=== PATIENT | male | born 1980 | race Caucasian/White ===

== ENCOUNTER 2018-01-13 19:09 | Emergency (ER) | payer SELFPAY ==
[~2018-01-13] VITALS: Ht 170.2 cm; Wt 81.8 kg
[~2018-01-13 19:09] MED LIST: BACTRIM DS1 TAB PO; CIPROFLOXACN500 MG PO; CORTISPORIN OTI10 ML AD; LORTAB 5/3255 MG PO; NAPROSYN500 MG PO; PERCOCET 5/325M1 TAB PO; TRILEPTAL150 M1 PO
[2018-01-13] MEDS ORDERED: BACTRIM DS1 TAB PO (20:05)
[2018-01-13] MEDS ORDERED: ULTRAM50 M1 PO (20:05)
[2018-01-13] MEDS ORDERED: CLINDAMYCIN300 M1 PO (20:05)
[2018-01-13 20:29] VITALS: BP 137/80
== END 2018-01-13 20:42 | disposition home or self-care (01) | DRG 603 ==
LOC: ED 19:09
DX: L03.116 Cellulitis of left lower limb (principal); F17.210 Nicotine dependence, cigarettes, uncomplicated; Z22.322 Carrier or suspected carrier of Methicillin resistant Staphylococcus aureus

== ENCOUNTER 2019-08-11 14:14 | Emergency (ER) | payer SELFPAY ==
[~2019-08-11] VITALS: Ht 170.2 cm; Wt 85.0 kg
[~2019-08-11 14:14] MED LIST changes: +CLINDAMYCIN300 M1 PO; +ULTRAM50 M1 PO
[2019-08-11 14:53] LABS: URINE BILIRUBIN - DIPSTICK NEGATIVE (NEGATIVE); URINE BLOOD DIPSTICK MODERATE (NEGATIVE); URINE COLOR YELLOW; URINE GLUCOSE - DIPSTICK NEGATIVE (NEGATIVE); URINE KETONE NEGATIVE (NEGATIVE); URINE LEUK ESTERASE TRACE (NEGATIVE); URINE NITRITE - DIPSTICK NEGATIVE (Negative); URINE PH 5.5 (4.5-8.0); URINE PROTEIN - DIPSTICK 30 mg/dL (NEG-TRACE); URINE SPECIFIC GRAVITY >=1.030; URINE UROBILINOGEN - DIPSTICK 0.2 E.U./dL (0.2)
[2019-08-11 15:05] LABS: URINE RBC TNTC RBC/hpf (0-5); URINE SQUAMOUS EPITHELIAL CELL FEW EPI/hpf (0-FEW)
[2019-08-11] MEDS ORDERED: DOXYCYCLINE100 MG PO (15:35)
[2019-08-11] MEDS ORDERED: ZOFRAN4 MG/TAB PO (15:36)
[2019-08-11 15:50] VITALS: BP 119/76
== END 2019-08-11 15:58 | disposition home or self-care (01) | DRG 696 ==
LOC: ED 14:14
DX: R30.0 Dysuria (principal); N48.89 Other specified disorders of penis; R36.9 Urethral discharge, unspecified; F17.210 Nicotine dependence, cigarettes, uncomplicated; Z20.2 Contact with and (suspected) exposure to infections with a predominantly sexual mode of transmission; Z88.0 Allergy status to penicillin

== ENCOUNTER 2020-04-20 17:35 | Inpatient (IN) | payer SELFPAY ==
[~2020-04-20] VITALS: Ht 170.2 cm; Wt 109.0 kg
[~2020-04-20 17:35] MED LIST changes: +DOXYCYCLINE100 MG PO; +ZOFRAN4 MG/TAB PO
--- NOTE | 2020-04-20 18:15 | NUR ---
Pt to room # 3 with steady gait for bedside triage
--- NOTE | 2020-04-20 18:18 | NUR ---
Pt placed gown over his clothing. States he'd rather keep his clothes on. Pt requesting to take a shower once he gets upstairs. Advised he would need to let his nurse know upstairs since there are no showers in the ER for patient use. Call el within reach. Denies any needs at this time
--- NOTE | 2020-04-20 18:20 | NUR ---
Dr Massey at bedside with portable US machine. Pt with right groin abscess with reddened area surrounding abscess. Dr Massey advised pt he would need to be admitted.
--- NOTE | 2020-04-20 18:57 | NUR ---
IV abx infusing to LAC at prescribed rate. IV site WNL, no redness or swelling noted. Call el within reach. Denies any needs at this time. Will continue to monitor.
[2020-04-20 19:02] LABS: HEMATOCRIT 46.4 % (39.0-50.0); HEMOGLOBIN 15.3 g/dl (14.0-18.0); IMMATURE GRANULOCYTES 0.4 % (0.0-5.0); MEAN CELL VOLUME 84.5 fL CALC (80.0-100.0); MEAN CORPUSCULAR HGB 27.9 pG CALC (26.0-32.0); NEUT# 12.11 thou/uL (1.82-7.42); RED BLOOD COUNT 5.49 mill/uL (4.70-6.10)
--- NOTE | 2020-04-20 19:10 | NUR ---
SBAR PRINTED TO FLOOR
[2020-04-20 19:27] LABS: ALKALINE PHOSPHATASE 54 u/l (38-126); ANION GAP 12 (6-22 (CALC)); BILIRUBIN, TOTAL 0.4 mg/dL (0.0-1.4); BUN 15 mg/dL (9-20); BUN/CREATININE RATIO 14 (12-20 (CALC)); CARBON DIOXIDE 27 mmol/l (22-30); CHLORIDE 102 mmol/l (95-108); CREATININE 1.1 mg/dL (0.7-1.3); GFR > 60 ML/MIN (>=60 (CALC)); GFR FOR AFR.AMER. > 60 ML/MIN (>=60 (CALC)); POTASSIUM 3.8 mmol/l (3.5-5.1); SGOT/AST 63 u/l (17-59); SODIUM 137 mmol/l (137-146); TOTAL PROTEIN 6.8 g/dL (6.3-8.2)
--- NOTE | 2020-04-20 19:38 | NUR ---
Sepsis worksheet initiated at this time
--- NOTE | 2020-04-20 20:00 | NUR ---
IV abx infusing at prescribed rate. IV site WNL. No redness or swelling noted. Call el within reach. Denies any needs at this time. Will continue to monitor.
--- NOTE | 2020-04-20 20:15 | NUR ---
Admission Note Report Given to: MERLENE Nieves Transported by: X Wheelchair Stretcher Transported with: X Nurse Transporter X Patent IV O2 Poultry Scalder Location: ICU X [facility] All belongings sent with pt to floor
--- NOTE | 2020-04-20 20:30 | NUR ---
RECIVED REPORT FROM NURSE GILLILAND PATIENT TRANSPORTED VIA WHEELCHAIR, ORIENTED TO ROOM AND CALL LIGHT SYSTEM.
--- NOTE | 2020-04-20 20:30 | NUR ---
Pt transported to room # 273 via W/C in stable condition. Allergy band on left arm and IV site labeled. Sepsis worksheet initiaed in ER and given to Ezequiel with bedside report. Care relinquished at this time
[2020-04-20 20:35] VITALS: BP 136/71
--- NOTE | 2020-04-20 20:51 | NUR ---
CALLED DR. CAMACHO REGARDING CLARIFICATION FOR CIPROFLOXACIN WITH ORDERS MADE, FAX TO PHARMACY.
--- NOTE | 2020-04-20 21:30 | NUR ---
RECEIVED A PHONE CALL FROM LAB PATIENTS LACTIC ACID 2.0
--- NOTE | 2020-04-20 21:30 | NUR ---
PATIENT SHOWERED AT THIS TIME.
[2020-04-20 22:00] VITALS: BP 143/83
[2020-04-20 23:30] VITALS: BP 138/64
--- NOTE | 2020-04-21 | NUR ---
PATIENT COMFORTABLY RESTING IN BED, EYES CLOSED,BREATHING EVEN AND UNLABORED CALL LIGHT AT REACH.
[2020-04-21 03:54] VITALS: BP 113/66
--- NOTE | 2020-04-21 04:30 | NUR ---
PATIENT RESTING IN BED WITH EYES CLOSED NO DISCOMFORTS NOTED AT THIS TIME.
[2020-04-21 07:15] VITALS: BP 109/61
--- NOTE | 2020-04-21 14:20 | NUR ---
S: SOFÍA LATIF is a 39 M who presents with cellulitis. He has no past medical history. All medications in patient's chart were reviewed. O: VS: BP 109/61 mmHg, P 82 bpm, RR 20, T 97.9 F W 109 kg, HT170 cm, Scr= 1.1 mg/dl, CrCl= 107.8 ml/min A: Blood culture on 04/20/20 is pending. P: Patient is on ciprofloxacin 400 mg IV Q12H and clindamycin 900 mg IV Q8H . Vancomycin ordered for pharmacy to dose. Start Vancomycin 1g IV Q8H. Vancomycin trough is drawn before the 4th dose on 04/22/20 at 0830. Vancomycin goal trough is between <10-15 mcg/ml>. Pharmacy will follow and or advise on antibiotics use as needed.
--- NOTE | 2020-04-21 14:58 | NUR ---
PT IN BED WITH EYES CLOSED. STATING HE IS VERY SLEEPY AND HAS NOT GOTTEN GOOD REST AT HOME. RESIDENT IS EASILY AROUSED. MEAL AND FLUID INTAKE ADEQUATE. CONTINENT OF B/B AND GETS UP TO TOILET WITH NO ASSIST. COMPLAINS OF PAIN TO GROIN WHEN YOU TOUCH THE AREA. REDNESS AND WARTH NOTED TO RIGHT GROIN AREA. MEDICATIONS GIVEN AND TOLERATED WELL. CALL LIGHT IS WITHIN REACH AND BED IN GOOD POSITION. WILL CONTINUE TO OBSERVE.
[2020-04-21 15:00] VITALS: BP 116/80
[2020-04-21 18:00] VITALS: BP 121/76
--- NOTE | 2020-04-21 19:08 | NUR ---
RECEIVED REPORT FROM DAY NURSE PATIENT CURRENTLY SITTING IN CHAIR BREATHING EVEN AND UNLABORED, CALL LIGHT AT REACH.
[2020-04-21 19:30] VITALS: BP 139/84
--- NOTE | 2020-04-21 19:40 | NUR ---
VITAL SIGNS STABLE, NOT IN DISTRESS
--- NOTE | 2020-04-21 19:45 | NUR ---
RECEIVED REPORT FROM NURSE AGUIRRE THE PATIENT WAS TRYING TO LEAVE AMA, PATIENT WAS ADMIITED FOR RT GROIN CELLULITIS AND THAT PATIENT SQUEEZE THE ABSCESS HIMSELF. DAY NURSE CLEANED AND APPLID DRESSING ON THE AREA.
--- NOTE | 2020-04-21 19:48 | NUR ---
TALKED TO PATIENT ABOUT DECISION, THAT HE IS CURRENTLY ON ANTIBIOTIC THERAPY FOR THE ABSCESS AND SQUEEZING IN FEBRUARY CAUSED INFECTION, PATIENT STILL WANTS TO SIGN AGAINST MEDICAL ADVICE FORM AND WANTED TO GO HOME THAT HE IS OK NOW. NURSE PAINT ROLLER WINDER MADE AWARE AND DR. CAMACHO WAS NOTIFIED AT THIS TIME.
--- NOTE | 2020-04-21 19:50 | NUR ---
DRESSING ONTHE RT GROIN CDI, PATIENT IS IN NO APPARENT DISTRESS, PATIENT SIGNED AMA FORM SIGN WILLINGLY, IV REMOVED SITE APPEARS HEALTHY, PATIENT WALK OUT AND LEFT HOSPITAL.
== END 2020-04-21 19:50 | disposition left against medical advice (07) | DRG 603 ==
LOC: ED 17:35 → ED-I 18:29 → ED 18:29 → ED-I 18:56 → MS2 18:56 → ED-I 18:56 → MS2 19:53
PROVIDERS: Family Medicine; ADMIT Surgery; ATTEND Surgery
DX: L02.214 Cutaneous abscess of groin (principal); L03.314 Cellulitis of groin; F17.200 Nicotine dependence, unspecified, uncomplicated; Z86.14 Personal history of Methicillin resistant Staphylococcus aureus infection; Z88.0 Allergy status to penicillin; Z20.828 Contact with and (suspected) exposure to other viral communicable diseases

== ENCOUNTER 2020-08-17 18:46 | Emergency (ER) | payer SELFPAY ==
[~2020-08-17] VITALS: Ht 170.2 cm; Wt 100.0 kg
[2020-08-17 20:52] LABS: HEMATOCRIT 45.9 % (39.0-50.0); HEMOGLOBIN 14.8 g/dl (14.0-18.0); IMMATURE GRANULOCYTES 0.5 % (0.0-5.0); MEAN CELL VOLUME 87.4 fL CALC (80.0-100.0); MEAN CORPUSCULAR HGB 28.2 pG CALC (26.0-32.0); MEAN CORPUSCULAR HGB CONC 32.2 g/dL CAL (32.0-36.0); NEUT# 9.83 thou/uL (1.82-7.42); RED BLOOD COUNT 5.25 mill/uL (4.70-6.10); RED CELL DISTRI WIDTH 13.2 % (11.5-15.5)
[2020-08-17 21:10] LABS: ALBUMIN 4.5 g/dL (3.2-5.0); ALKALINE PHOSPHATASE 56 u/l (38-126); ANION GAP 12 (6-22 (CALC)); BUN 24 mg/dL (9-20); BUN/CREATININE RATIO 20 (12-20 (CALC)); CARBON DIOXIDE 25 mmol/l (22-30); CHLORIDE 109 mmol/l (95-108); CREATININE 1.2 mg/dL (0.7-1.3); GFR > 60 ML/MIN (>=60 (CALC)); GFR FOR AFR.AMER. > 60 ML/MIN (>=60 (CALC)); POTASSIUM 4.1 mmol/l (3.5-5.1); SGOT/AST 39 u/l (17-59); SODIUM 142 mmol/l (137-146); TOTAL PROTEIN 7.8 g/dL (6.3-8.2)
[2020-08-17 21:11] LABS: BILIRUBIN, TOTAL 0.8 mg/dL (0.0-1.4)
[2020-08-17] MEDS ORDERED: BACTRIM DS1 TAB PO (22:16)
[2020-08-17 22:18] VITALS: BP 136/74
== END 2020-08-17 22:18 | disposition left against medical advice (07) | DRG 605 ==
LOC: ED 18:46
PROVIDERS: Family Medicine
PROC: 0HQ2XZZ Repair Right Ear Skin, External Approach (ICD-10-PCS; principal; 2020-08-17)
PROC: 0HQ0XZZ Repair Scalp Skin, External Approach (ICD-10-PCS; 2020-08-17)
DX: S01.01XA Laceration without foreign body of scalp, initial encounter (principal); S01.311A Laceration without foreign body of right ear, initial encounter; S02.2XXA Fracture of nasal bones, initial encounter for closed fracture; S00.11XA Contusion of right eyelid and periocular area, initial encounter; H11.31 Conjunctival hemorrhage, right eye; F17.200 Nicotine dependence, unspecified, uncomplicated; Y04.2XXA Assault by strike against or bumped into by another person, initial encounter; Y92.830 Public park as the place of occurrence of the external cause; Z91.19 Patient's noncompliance with other medical treatment and regimen

== ENCOUNTER 2023-01-09 03:34 | Emergency (ER) | payer SELFPAY ==
[~2023-01-09] VITALS: Ht 170.2 cm; Wt 81.0 kg
[2023-01-09] MEDS ORDERED: LORTAB 1010 MG PO (05:10)
[2023-01-09] MEDS ORDERED: DOXYCYCLINE100 MG PO (05:10)
[2023-01-09] MEDS ORDERED: BACTRIM DS1 TAB PO (05:10)
[2023-01-09 05:38] VITALS: BP 140/85
== END 2023-01-09 05:40 | disposition home or self-care (01) | DRG 581 ==
LOC: ED 03:34
PROC: 0W9F0ZZ Drainage of Abdominal Wall, Open Approach (ICD-10-PCS; principal; 2023-01-09)
DX: L02.211 Cutaneous abscess of abdominal wall (principal); T63.301A Toxic effect of unspecified spider venom, accidental (unintentional), initial encounter; Y92.9 Unspecified place or not applicable

== ENCOUNTER 2023-01-11 17:55 | Emergency (ER) | payer OTHER ==
[2023-01-11] VITALS (13 sets, daily range): BP systolic 73–155; BP diastolic 45–95
[~2023-01-11] VITALS: Ht 170.2 cm; Wt 177.0 kg
[~2023-01-11 17:55] MED LIST changes: +LORTAB 1010 MG PO
[2023-01-11 18:18] LABS: BASO% 0.3 % (0-3); EOS% 1.7 % (0-8); HEMATOCRIT 50.2 % (39.0-50.0); HEMOGLOBIN 16.1 g/dl (14.0-18.0); IMMATURE GRANULOCYTES 0.4 % (0.0-5.0); LYMPH% 13.6 % (15-41); MEAN CORPUSCULAR HGB 27.9 pG CALC (26.0-32.0); MEAN CORPUSCULAR HGB CONC 32.1 g/dL CAL (32.0-36.0); MONO% 6.1 % (2-13); NEUT# 9.25 thou/uL (1.82-7.42); NEUT% 77.9 % (42-76); RED BLOOD COUNT 5.77 mill/uL (4.70-6.10); RED CELL DISTRI WIDTH 12.8 % (11.5-15.5)
[2023-01-11 18:34] LABS: ALBUMIN 4.9 g/dL (3.2-5.0); ANION GAP 17 (6-22 (CALC)); BUN 16 mg/dL (9-20); BUN/CREATININE RATIO 13 (12-20 (CALC)); CARBON DIOXIDE 24 mmol/l (22-30); CHLORIDE 108 mmol/l (95-108); CREATININE 1.3 mg/dL (0.7-1.3); GFR FOR AFR.AMER. > 60 ML/MIN (>=60 (CALC)); GFR OTHER RACES > 60 ML/MIN (>=60 (CALC)); LIPASE 68 u/l (23-300); POTASSIUM 4.5 mmol/l (3.5-5.1); SGOT/AST 29 u/l (17-59); SODIUM 145 mmol/l (137-146)
[2023-01-11 18:35] LABS: ETHYL ALCOHOL 0 mg/dl (0-30)
[2023-01-11 18:48] LABS: ALKALINE PHOSPHATASE 96 u/l (38-126); BILIRUBIN, TOTAL 0.2 mg/dL (0.2-1.3)
[2023-01-11 23:33] LABS: URINE BILIRUBIN - DIPSTICK NEGATIVE (NEGATIVE); URINE BLOOD DIPSTICK NEGATIVE (NEGATIVE); URINE CLARITY CLEAR; URINE COLOR YELLOW; URINE GLUCOSE - DIPSTICK NEGATIVE (NEGATIVE); URINE KETONE TRACE mg/dL (NEGATIVE); URINE LEUK ESTERASE NEGATIVE (Negative); URINE NITRITE - DIPSTICK NEGATIVE (Negative); URINE PH 5.5 (4.5-8.0); URINE PROTEIN - DIPSTICK NEGATIVE (NEG-TRACE); URINE SPECIFIC GRAVITY >=1.030; URINE UROBILINOGEN - DIPSTICK 0.2 E.U./dL (0.2)
[2023-01-12 00:02] VITALS: BP 106/53
[2023-01-12 00:16] VITALS: BP 126/54
[2023-01-12 00:24] VITALS: BP 126/54
== END 2023-01-12 00:41 | DRG 918 ==
LOC: ED 17:55
PROVIDERS: Emergency Medicine
DX: T40.5X1A Poisoning by cocaine, accidental (unintentional), initial encounter (principal); F15.10 Other stimulant abuse, uncomplicated; F16.10 Hallucinogen abuse, uncomplicated; F17.210 Nicotine dependence, cigarettes, uncomplicated
CPT/HCPCS: J2060

== ENCOUNTER 2024-11-22 16:01 | Emergency (ER) | payer SELFPAY ==
[~2024-11-22] VITALS: Ht 170.2 cm; Wt 79.4 kg
[2024-11-22] VITALS (9 sets, daily range): BP systolic 101–143; BP diastolic 61–94
[2024-11-22] MEDS ORDERED: BACTRIM DS1 TAB PO (17:46)
== END 2024-11-22 18:05 | disposition home or self-care (01) | DRG 594 ==
LOC: ED 16:01
DX: L97.529 Non-pressure chronic ulcer of other part of left foot with unspecified severity (principal); F17.200 Nicotine dependence, unspecified, uncomplicated; Z87.820 Personal history of traumatic brain injury

== ENCOUNTER 2024-11-24 17:30 | Emergency (ER) | payer SELFPAY ==
[~2024-11-24] VITALS: Ht 170.2 cm; Wt 63.0 kg
[2024-11-24 17:51] VITALS: BP 107/73
[2024-11-24] MEDS ORDERED: SODIUM CHLORIDE 0.9% 1,000 ML IV ONE ×2 (17:55→18:40)
[2024-11-24] MEDS ORDERED: KETOROLAC TROMETHAMINE 15 MG/ML SDV IV ONE (17:55)
[2024-11-24 18:27] LABS: BASO% 0.3 % (0-3); HEMATOCRIT 46.5 % (39.0-50.0); HEMOGLOBIN 14.1 g/dl (14.0-18.0); IMMATURE GRANULOCYTES 0.3 % (0.0-5.0); LYMPH% 7.1 % (15-41); MEAN CELL VOLUME 97.3 fL CALC (80.0-100.0); MEAN CORPUSCULAR HGB 29.5 pG CALC (26.0-32.0); MEAN CORPUSCULAR HGB CONC 30.3 g/dL CAL (32.0-36.0); MONO% 3.7 % (2-13); NEUT# 8.83 thou/uL (1.82-7.42); NEUT% 88.6 % (42-76); RED BLOOD COUNT 4.78 mill/uL (4.70-6.10); RED CELL DISTRI WIDTH 14.5 % (11.5-15.5)
[2024-11-24 18:36] VITALS: BP 110/75
[2024-11-24 18:37] LABS: ALBUMIN 4.1 g/dL (3.2-5.0); CREATININE 1.5 mg/dL (0.7-1.3); POTASSIUM 3.7 mmol/l (3.5-5.1); TOTAL PROTEIN 7.6 g/dL (6.3-8.2)
[2024-11-24 18:38] LABS: BILIRUBIN, TOTAL 1.1 mg/dL (0.2-1.3)
[2024-11-24 18:46] VITALS: BP 115/70
[2024-11-24 18:59] LABS: ETHYL ALCOHOL 0 mg/dl (0-30)
[2024-11-24 19:00] VITALS: BP 107/65
[2024-11-24 19:15] VITALS: BP 105/65
[2024-11-24 20:21] LABS: URINE BLOOD DIPSTICK Trace-intact (NEGATIVE); URINE GLUCOSE - DIPSTICK 100 mg/dL (NEGATIVE); URINE KETONE 40 mg/dL (NEGATIVE); URINE LEUK ESTERASE Negative (NEGATIVE); URINE NITRITE - DIPSTICK Negative (Negative); URINE PROTEIN - DIPSTICK 30 mg/dL (NEG-TRACE)
[2024-11-24 20:24] LABS: URINE COLOR Dark yellow
[2024-11-24 20:31] LABS: URINE RBC 0-2 RBC/hpf (0-5); URINE WBC 0-2 WBC/hpf (0-5)
[2024-11-24 20:32] LABS: URINE MUCUS FEW hpf (NONE-FEW)
[2024-11-24] MEDS ORDERED: ACETAMINOPHEN 500 MG TAB PO ONE (21:15)
[2024-11-24] MEDS ORDERED: IBUPROFEN 600 MG/TAB PO ONE (21:15)
[2024-11-24 21:30] VITALS: BP 105/65
[2024-11-25] MEDS ORDERED: PROTONIX40 M2 PO ×2 (11:43→12:42)
== END 2024-11-24 21:30 | disposition short-term general hospital (02) | DRG 83 ==
LOC: ED 17:30
PROVIDERS: Nurse Practitioner Family
DX: S06.35AA Traumatic hemorrhage of left cerebrum with loss of consciousness status unknown, initial encounter (principal); N17.9 Acute kidney failure, unspecified; E86.0 Dehydration; F17.200 Nicotine dependence, unspecified, uncomplicated; W17.89XA Other fall from one level to another, initial encounter; Z59.00 Homelessness unspecified; Z87.820 Personal history of traumatic brain injury
CPT/HCPCS: J1885; Q9967

== ENCOUNTER 2024-11-25 08:57 | Emergency (ER) | payer SELFPAY ==
[~2024-11-25] VITALS: Ht 170.2 cm; Wt 79.0 kg
[2024-11-25] VITALS (8 sets, daily range): BP systolic 103–121; BP diastolic 57–72
[2024-11-25 09:56] LABS: BASO% 0.5 % (0-3); HEMOGLOBIN 12.3 g/dl (14.0-18.0); IMMATURE GRANULOCYTES 0.5 % (0.0-5.0); LYMPH% 3.1 % (15-41); MEAN CELL VOLUME 91.6 fL CALC (80.0-100.0); MEAN CORPUSCULAR HGB 29.5 pG CALC (26.0-32.0); MEAN CORPUSCULAR HGB CONC 32.2 g/dL CAL (32.0-36.0); MONO% 3.6 % (2-13); NEUT# 5.66 thou/uL (1.82-7.42); NEUT% 92.3 % (42-76); RED BLOOD COUNT 4.17 mill/uL (4.70-6.10); RED CELL DISTRI WIDTH 14.3 % (11.5-15.5)
[2024-11-25 09:57] LABS: HEMATOCRIT 38.2 % (39.0-50.0)
[2024-11-25 10:07] LABS: POTASSIUM 3.9 mmol/l (3.5-5.1); TOTAL PROTEIN 6.3 g/dL (6.3-8.2)
[2024-11-25 10:09] LABS: ALBUMIN 3.1 g/dL (3.2-5.0); BILIRUBIN, TOTAL 0.6 mg/dL (0.2-1.3)
[2024-11-25] MEDS ORDERED: KETOROLAC TROMETHAMINE 15 MG/ML SDV IV ONE (10:55)
[2024-11-25] MEDS ORDERED: ONDANSETRON HCl 4 MG/2 ML SDV IV ONE (10:55)
[2024-11-25] MEDS ORDERED: Pantoprazole Sodium 40 MG VIAL (Protonix) IV ONE (10:55)
[2024-11-25] MEDS ORDERED: SODIUM CHLORIDE 0.9% 1,000 ML IV ONE (10:55)
[2024-11-25] MEDS ORDERED: PROTONIX40 M2 PO ×2 (11:43→12:42)
== END 2024-11-25 12:26 | disposition home or self-care (01) | DRG 605 ==
LOC: ED 08:57
PROVIDERS: Family Medicine
DX: S91.302A Unspecified open wound, left foot, initial encounter (principal); R10.30 Lower abdominal pain, unspecified; R10.10 Upper abdominal pain, unspecified; F17.200 Nicotine dependence, unspecified, uncomplicated; X58.XXXA Exposure to other specified factors, initial encounter; Z87.820 Personal history of traumatic brain injury; Z59.00 Homelessness unspecified
CPT/HCPCS: J1885; J2405; J2470